=== PATIENT | female | born 1965 | race Caucasian/White ===

== ENCOUNTER 2017-11-16 08:07 | Day surgery (SDC) | payer BC ==
[~2017-11-16] VITALS: Ht 170.2 cm; Wt 72.4 kg
[~2017-11-16 08:07] MED LIST: OXYC5; Zofran4 MG
== END 2017-11-16 10:19 | disposition home or self-care (01) ==
LOC: ORSCSDS 08:07
PROVIDERS: Internal Medicine Gastroenterology
PROC: 0D758ZZ Dilation of Esophagus, Via Natural or Artificial Opening Endoscopic (ICD-10-PCS; principal; 2017-11-16 09:30)
PROC: 0DB68ZX Excision of Stomach, Via Natural or Artificial Opening Endoscopic, Diagnostic (ICD-10-PCS; principal; 2017-11-16 09:30)
DX: R10.13 Epigastric pain (principal); R68.81 Early satiety; K29.00 Acute gastritis without bleeding; K29.80 Duodenitis without bleeding; R13.10 Dysphagia, unspecified; Z98.890 Other specified postprocedural states
CPT/HCPCS: J2405; J7120

== ENCOUNTER 2019-05-03 08:09 | Day surgery (SDC) | payer OTHER ==
[~2019-05-03] VITALS: Ht 170.2 cm; Wt 84.4 kg
[2019-05-03] MEDS ORDERED: PANT40 (09:25)
[2019-05-03] MEDS ORDERED: Metoclopramide H5 MG (09:25)
== END 2019-05-03 10:07 | disposition home or self-care (01) ==
LOC: ORSCSDS 08:09
PROVIDERS: Internal Medicine Gastroenterology
PROC: 0DB68ZX Excision of Stomach, Via Natural or Artificial Opening Endoscopic, Diagnostic (ICD-10-PCS; principal; 2019-05-03 09:30)
PROC: 0D757ZZ Dilation of Esophagus, Via Natural or Artificial Opening (ICD-10-PCS; principal; 2019-05-03 09:30)
DX: R10.13 Epigastric pain (principal); K21.9 Gastro-esophageal reflux disease without esophagitis; R11.2 Nausea with vomiting, unspecified; R13.10 Dysphagia, unspecified; K25.9 Gastric ulcer, unspecified as acute or chronic, without hemorrhage or perforation; Z79.899 Other long term (current) drug therapy
CPT/HCPCS: 88305; 88342; J2405; J2704; J7120

== ENCOUNTER 2020-01-03 10:14 | Day surgery (SDC) | payer OTHER ==
[~2020-01-03] VITALS: Ht 170.2 cm; Wt 84.8 kg
[~2020-01-03 10:14] MED LIST changes: +METO5A PO; +Metoclopramide H5 MG; +PANT40
== END 2020-01-03 11:09 | disposition home or self-care (01) ==
LOC: ORSCSDS 10:14
PROVIDERS: Internal Medicine Gastroenterology
PROC: 0DB68ZX Excision of Stomach, Via Natural or Artificial Opening Endoscopic, Diagnostic (ICD-10-PCS; principal; 2020-01-03 11:00)
PROC: 0D757ZZ Dilation of Esophagus, Via Natural or Artificial Opening (ICD-10-PCS; principal; 2020-01-03 11:00)
PROC: 0DB98ZX Excision of Duodenum, Via Natural or Artificial Opening Endoscopic, Diagnostic (ICD-10-PCS; principal; 2020-01-03 11:00)
DX: R11.2 Nausea with vomiting, unspecified (principal); R10.9 Unspecified abdominal pain; R13.10 Dysphagia, unspecified; K29.70 Gastritis, unspecified, without bleeding; J45.909 Unspecified asthma, uncomplicated; Z79.899 Other long term (current) drug therapy
CPT/HCPCS: 88305; 88342; J2704; J7120

== ENCOUNTER 2020-09-06 09:18 | Day surgery (SDC) | payer OTHER ==
[~2020-09-06] VITALS: Ht 170.2 cm; Wt 83.4 kg
[~2020-09-06 09:18] MED LIST changes: +CARAFATE1 GM PO; +LEVOTHYROXINE75 MC1 PO; +OXAYDO5 M1 PO; +PROTONIX40 M1 PO; +PYRI60 PO
== END 2020-09-06 10:40 | disposition home or self-care (01) ==
LOC: ORSCSDS 09:18
PROVIDERS: Internal Medicine Gastroenterology
PROC: 0DB78ZX Excision of Stomach, Pylorus, Via Natural or Artificial Opening Endoscopic, Diagnostic (ICD-10-PCS; principal; 2020-09-06 10:30)
PROC: 0D758ZZ Dilation of Esophagus, Via Natural or Artificial Opening Endoscopic (ICD-10-PCS; principal; 2020-09-06 10:30)
DX: R13.10 Dysphagia, unspecified (principal); K21.9 Gastro-esophageal reflux disease without esophagitis; K29.70 Gastritis, unspecified, without bleeding; Z79.899 Other long term (current) drug therapy
CPT/HCPCS: 88305; 88342; J2704; J7120